=== PATIENT | female | born 1980 | race Caucasian/White ===

== ENCOUNTER 2017-01-22 08:33 | Day surgery (SDC) | payer OTHER ==
[2017-01-22] MEDS ORDERED: ONDANSETRON HCL INJ/PF 4 MG/2 ML SDV ONE (08:36)
[2017-01-22] MEDS ORDERED: NALOXONE HCL INJ/PF 0.4 MG/1 ML SDV ONE (08:36)
[2017-01-22] MEDS ORDERED: GLYCOPYRROLATE INJ 0.4 MG/2 ML VIAL ONE (08:36)
[2017-01-22] MEDS ORDERED: LIDOCAINE 2% JELLY 30 ML TUBE ONE (08:36)
[2017-01-22] MEDS ORDERED: EPINEPHRINE INJ 1 MG/10 ML DISP.SYRIN ONE (08:37)
[2017-01-22] MEDS ORDERED: FLUMAZENIL INJ 0.5 MG/5 ML VIAL ONE (08:37)
[2017-01-22] MEDS ORDERED: GLUCAGON,HUMAN RECOMB 1 MG INJ ONE (08:38)
[2017-01-22] MEDS: MIDAZOLAM 2 MG/2 ML INJ ONE ×3 (09:36→09:46)
[2017-01-22] MEDS: FENTANYL CITRATE INJ/PF 100 MCG/2 ML AMPUL ONE ×2 (09:38→09:42)
[2017-01-22 10:57] VITALS: BP 112/68
[2017-01-22 11:32] LABS: ABSOLUTE BASOPHILS # (AUTO) 0.1 10^3/uL (0.0-0.2); ABSOLUTE EOSINOPHILS # (AUTO) 0.2 10^3/uL (0.0-0.6); ABSOLUTE LYMPHOCYTES (AUTO) 1.4 10^3/uL (0.5-4.7); ABSOLUTE MONOCYTES (AUTO) 0.7 10^3/uL (0.1-1.4); ABSOLUTE NEUT (AUTO) 8.8 10^3/uL (1.7-8.2); BASOPHILS % (AUTO) 0.5 % (0-2); EOSINOPHILS % (AUTO) 1.6 % (0-6); HEMATOCRIT 43.2 % (36.0-47.0); HEMOGLOBIN 14.8 g/dL (12.0-15.5); HGB HCT DIFFERENCE 1.2; LYMPHOCYTES % (AUTO) 12.2 % (13-45); MEAN CORPUSCULAR HEMOGLOBIN 30.8 pg (27.0-33.4); MEAN CORPUSCULAR HGB CONC 34.4 g/dL (32.0-36.0); MEAN CORPUSCULAR VOLUME 90 fl (80-97); MONOCYTES % (AUTO) 6.6 % (3-13); RED BLOOD COUNT 4.83 10^6/uL (3.72-5.28); RED CELL DISTRIBUTION WIDTH 13.4 % (11.5-14.0); SEGMENTED NEUTROPHILS % (AUTO) 79.1 % (42-78); WHITE BLOOD COUNT 11.1 10^3/uL (4.0-10.5)
[2017-01-22 12:16] LABS: ERYTHROCYTE SEDIMENTATION RATE 7 mm/hr (0-20)
--- NOTE | 2017-01-22 13:30 | OPERATIVE REPORT E ---
Operative Report NAME: MIKEY RUSS : 1980 AGE: 37Y DATE OF SURGERY: 01/22/2017 ROOM: PREOPERATIVE DIAGNOSIS: History of endometriosis, history of blood in the stool during her menstrual period, question endometriosis in the colon. POSTOPERATIVE DIAGNOSES: 1. Mild external hemorrhoids. 2. Questioned erythema in the proximal ascending colon, ? colitis. OPERATION: Colonoscopy. SURGEON: YVAN REID M.D. ANESTHESIA: Versed 6 mg and Fentanyl 100 mcg. PROCEDURE: Rectal exam: External hemorrhoids, mild. Sigmoid and descending colon normal, moderate amount of liquidy brown stool. Transverse colon normal, liquidy brown stool. Ascending colon normal. Proximal ascending 1 mm redness on multiple areas consistent with probable mild colitis. Biopsy obtained, right colon, to rule out microscopic colitis. Scope withdrawn cecum, ascending, transverse, descending, sigmoid all the way to the rectum. CONCLUSIONS: No evidence of endometriosis by endoscopy. Awaiting biopsy of right colon for probable microscopic colitis. No polyps, no malignancy. PLAN: 1. Soft diet for 3 days. 2. Hold aspirin and nonsteroidals for 3 days. 3. I will obtain baseline CBC with sed rate and CRP. DICTATING PHYSICIAN: YVAN REID M.D. [id number] PHY#: [id number] ID: [id number] JOB#: [id number] ACCT: [id number] cc:[facility] YVAN BURTON M.D. >
--- NOTE | 2017-01-22 13:31 | DISCHARGE SUMMARY E ---
Discharge Summary NAME: MIKEY RUSS : 1980 AGE: 37Y ADMITTED: 01/22/2017 DISCHARGED: 01/22/2017 HOSPITAL COURSE: The patient is a 37-year-old female. She has a history of endometriosis. She does notice blood in her stool during her menstrual period. She takes no medications. Today's colonoscopy shows no polyps. No endometriosis. Question probable right colon microscopic colitis. Biopsy obtained. DISCHARGE PLAN: Soft diet. Baseline CBC and CRP. Patient to see us in the office in the next few days. DICTATING PHYSICIAN: YVAN REID M.D. [id number] PHY#: [id number] ID: [id number] JOB#: [id number] ACCT: [id number] cc:[facility] YVAN HOLLINGSWORTH M.D. >
== END 2017-01-22 11:15 | disposition home or self-care (01) ==
LOC: END 08:33
PROVIDERS: ATTEND Specialist
PROC: 0DBF8ZX Excision of Right Large Intestine, Via Natural or Artificial Opening Endoscopic, Diagnostic (ICD-10-PCS; principal; 2017-01-22 09:00)
DX: K64.4 Residual hemorrhoidal skin tags (principal); K56.2 Volvulus; Z90.5 Acquired absence of kidney
CPT/HCPCS: 45380; 36415; 85025; 85652; 86140; 88305 ×2; 88313 ×2; J2250; J3010; J1610; J2405; J0171; J2310; J3490

== ENCOUNTER 2017-02-16 08:40 | Day surgery (SDC) | payer OTHER ==
[2017-02-11 10:43] LABS: HEMATOCRIT 42.8 % (36.0-47.0); HEMOGLOBIN 14.6 g/dL (12.0-15.5); MEAN CORPUSCULAR HEMOGLOBIN 30.2 pg (27.0-33.4); MEAN CORPUSCULAR VOLUME 89 fl (80-97); RED BLOOD COUNT 4.81 10^6/uL (3.72-5.28); RED CELL DISTRIBUTION WIDTH 13.3 % (11.5-14.0); WHITE BLOOD COUNT 5.7 10^3/uL (4.0-10.5)
[2017-02-11 10:45] LABS: APPEARANCE,URINE CLEAR; BILIRUBIN,URINE NEGATIVE (NEGATIVE); GLUCOSE, URINE NEGATIVE (NEGATIVE); KETONES,URINE NEGATIVE (NEGATIVE); LEUKOCYTE ESTERASE,URINE NEGATIVE (NEGATIVE); NITRITE,URINE NEGATIVE (NEGATIVE); PROTEIN,URINE NEGATIVE (NEGATIVE); URINE SPECIFIC GRAVITY 1.003; UROBILINOGEN,URINE NEGATIVE mg/dL (<2.0)
[2017-02-11 11:07] LABS: ALANINE AMINOTRANSFERASE 35 U/L (9-52); ALBUMIN 4.7 g/dL (3.5-5.0); ALKALINE PHOSPHATASE 74 U/L (38-126); ANION GAP 15 (5-19); ASPARTATE AMINO TRANSFERASE 19 U/L (14-36); BILIRUBIN,DIRECT 0.3 mg/dL (0.0-0.4); BILIRUBIN,TOTAL 0.5 mg/dL (0.2-1.3); BLOOD UREA NITROGEN 10 mg/dL (7-20); CALCIUM 10.7 mg/dL (8.4-10.2); CARBON DIOXIDE 19 mmol/L (22-30); CHLORIDE 110 mmol/L (98-107); CREATININE RESULT 0.65 mg/dL (0.52-1.25); GLUCOSE 74 mg/dL (75-110); POTASSIUM 4.6 mmol/L (3.6-5.0); SODIUM 143.8 mmol/L (137-145); TOTAL PROTEIN 7.7 g/dL (6.3-8.2)
[~2017-02-16 08:40] MED LIST: BUPIVACAINE HCL 0.25 % INJ/PF (2.5 MG/1 ML) 30 ML VIAL ONE; CEFAZOLIN 2 GM/D5W RTU 2 GM/50 ML RTUPB IV PRN; GABAPENTIN 400 MG CAPSULE PO PRN; LACTATED RINGERS 1000 ML IV PRN; LIDOCAINE 0.5% INJ-PF (5 MG/ML) 50 ML SDV SUBCUT PRN
[2017-02-16] MEDS ORDERED: FENTANYL CITRATE INJ/PF 100 MCG/2 ML AMPUL ONE ×3 (09:42→12:13)
[2017-02-16] MEDS ORDERED: HYDROMORPHONE HCL INJ/PF 2 MG/ML AMPULE ONE (09:42)
[2017-02-16] MEDS ORDERED: MIDAZOLAM 2 MG/2 ML INJ ONE (09:43)
[2017-02-16] MEDS ORDERED: EPHEDRINE SULFATE INJ 50 MG/1 ML AMPULE ONE (09:43)
[2017-02-16] MEDS ORDERED: ACETAMINOPHEN 100 ML IV ONE (09:43)
[2017-02-16] MEDS ORDERED: PROPOFOL INJ 200 MG/20 ML VIAL IV ONE (09:44)
[2017-02-16] MEDS ORDERED: DIPHENHYDRAMINE HCL 50 MG/ML VIAL IV PRN (10:52)
[2017-02-16] MEDS ORDERED: FENTANYL CITRATE INJ/PF 100 MCG/2 ML AMPUL IV PRN ×3 (10:52)
[2017-02-16] MEDS ORDERED: PROMETHAZINE HCL INJ 25 MG/1 ML VIAL IV PRN ×2 (10:52)
[2017-02-16] MEDS ORDERED: MEPERIDINE HCL/PF INJ 25 MG/1 ML DISP.SYRIN IV PRN (10:52)
[2017-02-16] MEDS ORDERED: OXYCODONE-ACETAMINOPHEN 5-325 MG TABLET PO PRN (12:06)
[2017-02-16] MEDS ORDERED: ONDANSETRON HCL INJ/PF 4 MG/2 ML SDV IV PRN (12:07)
--- NOTE | 2017-02-16 12:58 | OPERATIVE REPORT E ---
Operative Report NAME: MIKEY RUSS : 1980 AGE: 37Y DATE OF SURGERY: 02/16/2017 ROOM: PREOPERATIVE DIAGNOSES: 1. Pelvic pain. 2. Dysmenorrhea. POSTOPERATIVE DIAGNOSES: 1. Pelvic pain. 2. Dysmenorrhea. 3. Endometriosis of the left uterosacral, posterior cul-de-sac, bladder, peritoneum. PROCEDURE: Robotic assisted total laparoscopic hysterectomy with bilateral salpingectomy and fulguration of endometriosis. SURGEON: TRI CASANOVA M.D. WEB DEVELOPMENT INSTRUCTOR: Binta Stanley M.D. ANESTHESIA: General. COMPLICATIONS: None. ESTIMATED BLOOD LOSS: 100 mL. URINE OUTPUT: Clear at the end of the procedure. SPECIMENS: Uterus and cervix with bilateral fallopian tubes. FINDINGS: Patient had normal appearing ovaries, some left pelvic sidewall adhesions of the descending colon to the left pelvic sidewall, left tube and left ovary. There were notable powder burn lesions, the largest approximately 1 cm in diameter on the left uterosacral ligament, throughout the posterior cul-de-sac and on the bladder/peritoneum reflection. INDICATIONS: This is a 37-year-old female with a history of recurrent pelvic pain and dysmenorrhea and rectal bleeding with menstrual cycle. She desires definitive surgical therapy today. After discussing the risks, benefits, and alternatives including but not limited to medical management, observation, laparoscopic diagnostic procedure, vaginal hysterectomy, open abdominal hysterectomy were all discussed with the patient and she elected for the above procedure. She has also undergone preoperative colonoscopy for evaluation of the rectal bleeding which did not discover any endometriosis implants inside the lumen of the colon. PROCEDURE: After the patient was properly consented, she was taken to the operating room where general anesthesia was undertaken with endotracheal intubation. The patient was transferred to a dorsal lithotomy position using adjustable Adonis stirrups and prepped and draped in the usual sterile fashion. We began with placing a V-care medium sized uterine manipulator in the typical fashion. A Pool catheter was also placed in the bladder. Gloves were changed and we proceeded above where 0.25% plain Marcaine local anesthetic was placed infraumbilically and a 12 mm skin incision was made with a scalpel followed by a Veress needle introduced into the peritoneal cavity with correct placement ascertained by a drop in CO2 pressure to 1 mmHg. Pneumoperitoneum was established to a pressure of 15 mmHg. Then a 12 mm bladeless trocar was advanced into the pneumoperitoneum and immediate visualization with the camera demonstrated an atraumatic entry as well as the above findings. We subsequently placed 2 right and 1 left lateral ports, all 8 mm in size followed by the typical routine of local anesthetic, skin incision and placement of the port under direct visualization with the camera. With all ports in place, the patient was put in steep Trendelenburg position and the robot was docked. At this time, I proceeded to the robotic console and made a thorough investigation of the pelvis including visualization of bilateral ureters and the above findings. I began with dissection on the right hand side of the pelvis. The vessel sealer was used to dissect the right fallopian tube from the tubo-ovarian ligament. Then the round ligament on the right was cauterized and transected. The utero-ovarian ligament was then dissected with the vessel sealer down to the area where the round ligament had been transected. Then the broad ligament was opened and dissected inferiorly and anteriorly to create the bladder flap which was reduced. Dissection was then continued along the lateral portion of the uterine body to connect the previous incisions and the uterine artery was dissected out and identified, cauterized and transected at the area next to the lower uterine segment. Being very careful to hug the uterus during this portion of the surgery, the dissection was continued along the side of the cervix to the top of the coring. The same dissection was repeated on the left hand side and the areas of dissection were noted to be hemostatic. Next, the edge of the Vcare cervical cup was identified. At this time, the vessel sealer was switched out for monopolar scissors. Colpotomy was initiated with monopolar scissors and carried around circumferentially until the specimen was free and pulled through the vagina. Next the bipolar cautery was used to fulgurate the lesion at the uterosacral ligament as well multiple smaller lesions in the posterior cul-de-sac and 2 lesions anteriorly on the reflection of peritoneum over the bladder. The peritoneum was elevated and then cautery was initiated while the peritoneum was pulled away from structures behind. At this time, the monopolar scissors were replaced with the Louis Needle transit mixer driver suture cut. The vaginal cuff was then closed in a running V-Loc suture of 3-0 Monocryl incorporating the uterosacral pedicles for support. The pelvis was then copiously irrigated and hemostasis was noted to be excellent. Both ureters were noted to be peristalsing and running in their usual course without dilation. The robot was undocked and all instruments were removed. The abdomen was desufflated. The patient was taken out of Trendelenburg. The fascia of the 12 mm port site was then closed with 0 Vicryl suture and the skin of the 8 mm and 12 mm laparoscopic ports were closed with 4-0 Monocryl in a subcuticular fashion. Dermabond dressing was applied to all incisions. The Pool catheter was removed from the bladder and the vagina was swept with a sponge stick to ensure no excessive bleeding was present. At this time, the procedure was complete and anesthesia was reversed. Sponge, lap, and needle counts were correct at the end of the procedure, and the patient was taken to the PACU in stable condition. DICTATING PHYSICIAN: TRI CASANOVA M.D. [id number] PHY#: [id number] ID: [id number] JOB#: [id number] ACCT: [id number] cc:TRI CASANOVA M.D. >
[2017-02-16] MEDS ORDERED: GLYCOPYRROLATE INJ 0.4 MG/2 ML VIAL ONE (13:20)
[2017-02-16] MEDS ORDERED: ONDANSETRON HCL INJ/PF 4 MG/2 ML SDV ONE (13:20)
[2017-02-16] MEDS ORDERED: DEXAMETHASONE SOD PHOSPHATE INJ 4 MG/1 ML VIAL ONE (13:20)
[2017-02-16] MEDS ORDERED: SUCCINYLCHOLINE CHLORIDE INJ 200 MG/10 ML VIAL ONE (13:20)
[2017-02-16] MEDS ORDERED: ROCURONIUM BROMIDE INJ 50 MG/5 ML VIAL IV ONE (13:20)
[2017-02-16] MEDS ORDERED: LIDOCAINE 2% INJ-PF (20 MG/ML) 2 ML AMPUL ONE (13:20)
[2017-02-16] MEDS ORDERED: NEOSTIGMINE METHYLSULFATE 10 MG/10 ML VIAL ONE (13:20)
[2017-02-16] MEDS ORDERED: KETOROLAC TROMETHAMINE 60 MG/2 ML SDV ONE (13:20)
[2017-02-16 16:40] VITALS: BP 113/58
== END 2017-02-16 17:21 | disposition home or self-care (01) ==
LOC: OROUT 08:40 → 2N 13:05 → OROUT 17:21
PROVIDERS: ATTEND Obstetrics & Gynecology
PROC: 0UT74ZZ Resection of Bilateral Fallopian Tubes, Percutaneous Endoscopic Approach (ICD-10-PCS; 2017-02-16)
PROC: 8E0W4CZ Robotic Assisted Procedure of Trunk Region, Percutaneous Endoscopic Approach (ICD-10-PCS; 2017-02-16)
PROC: 0D5W4ZZ Destruction of Peritoneum, Percutaneous Endoscopic Approach (ICD-10-PCS; 2017-02-16)
PROC: 0T5B4ZZ Destruction of Bladder, Percutaneous Endoscopic Approach (ICD-10-PCS; 2017-02-16)
PROC: 0UT94ZZ Resection of Uterus, Percutaneous Endoscopic Approach (ICD-10-PCS; principal; 2017-02-16 10:30)
DX: N94.5 Secondary dysmenorrhea (principal); N80.3 Endometriosis of pelvic peritoneum; N80.8 Other endometriosis; N73.6 Female pelvic peritoneal adhesions (postinfective); R10.2 Pelvic and perineal pain; K92.1 Melena; F17.210 Nicotine dependence, cigarettes, uncomplicated; I10 Essential (primary) hypertension; M25.561 Pain in right knee; Z79.899 Other long term (current) drug therapy; Z79.84 Long term (current) use of oral hypoglycemic drugs
CPT/HCPCS: 53899; 58571; 58662; S2900; 36415; 80053; 81001; 81025; 840; 85027; 86850; 86900; 86901; 88307; J0131; J0330; J0690; J1100; J1170; J1885; J2250; J2405; J2704; J3010; J3490